=== PATIENT | female | born 1965 | race Caucasian/White ===

== ENCOUNTER 2018-08-19 07:06 | Inpatient (IN) | payer BC ==
[2018-08-11 11:36] VITALS: BMI 27.4
--- NOTE | 2018-08-19 06:38 | P.GSHP ---
History of Present Illness H&P Date: 08/19/18 CHIEF COMPLAINT: Paraesophageal hiatal hernia with gastroesophageal reflux disease. HISTORY OF PRESENT ILLNESS: The patient is a 53-year-old female who presents with paraesophageal hiatal hernia. She has completed an esophageal manometry including upper endoscopy workup. Now she presents for surgical intervention. PAST MEDICAL HISTORY: Please see list. PAST SURGICAL HISTORY: Please see list. MEDICATIONS: Please see list. ALLERGIES: Please see list. SOCIAL HISTORY: No illicit drug use FAMILY HISTORY: No reports of Crohn disease or ulcerative colitis. REVIEW OF ORGAN SYSTEMS: CONSTITUTIONAL: No reports of fevers or chills. GI: Denies any blood in stools or constipation. PHYSICAL EXAM: VITAL SIGNS: Stable GENERAL: Well-developed pleasant and in no acute distress. HEENT: No scleral icterus. Extraocular movements grossly intact. Moist buccal mucosa. NECK: Supple without lymphadenopathy. CHEST: Unlabored respirations. Equal bilateral excursions. CARDIOVASCULAR: Regular rate and rhythm. Distal 2+ pulses. ABDOMEN: Soft, nondistended. No peritoneal signs. MUSCULOSKELETAL: No clubbing, cyanosis, or edema. SKIN: Well-perfused. Good skin turgor. MANOMETRY: Shows no evidence of achalasia or scleroderma. ASSESSMENT: 1. Diaphragmatic paraesophageal hiatal hernia with severe gastroesophageal reflux disease. PLAN: 1. Recommend proceeding with a robotic paraesophageal hiatal hernia with possible mesh. 2. Benefits and risks of surgical intervention was discussed including possibility of open technique. 3. Inpatient hospitalization recommended of 2 nights 4. DVT prophylaxis. 5. Antibiotic prophylaxis. 6. She has also completed a very low caloric high-protein diet to address underlying hepatomegaly. Past Medical History Past Medical History: GERD/Reflux, Hypertension, Osteoarthritis (OA), Renal Disease Additional Past Medical History / Comment(s): BORN WITH 1 KIDNEY., STAGE 3 KIDNEY DISEASE., FATTY LIVER DISEASE, DIVERTICULITIS, HX OF IRREGULAR HEART BEAT., VARICOSE VEINS., BACK PAIN, HX OF FX HIP WITH SURGERY., 29% HEARING LOSS RIGHT EAR., HIATAL HERNIA- STATES SHE IS ON LIQUID DIET PER DR TURPIN INSTRUCTIONS. History of Any Multi-Drug Resistant Organisms: None Reported Past Surgical History: Adenoidectomy, Cholecystectomy, Orthopedic Surgery, Tonsillectomy, Uterine Ablation Additional Past Surgical History / Comment(s): CONE BX X2, FX LEFT HIP (2017) Past Anesthesia/Blood Transfusion Reactions: Postoperative Nausea & Vomiting ( PONV) Past Psychological History: Anxiety, Depression Smoking Status: Never smoker Past Alcohol Use History: Rare Past Drug Use History: None Reported - Past Family History Mother Family Medical History: Cancer Additional Family Medical History / Comment(s): BREAST CANCER Medications and Allergies Home Medications Medication Instructions Recorded Confirmed Type ALPRAZolam [Xanax] 0.25 mg PO BID PRN 08/11/18 08/11/18 History Ergocalciferol [Vitamin D2] 50,000 unit PO Q14D 08/11/18 08/11/18 History L.acidoph,Paracasei, B.lactis 1 each PO DAILY 08/11/18 08/11/18 History [Probiotic] Lisinopril [Zestril] 2.5 mg PO HS 08/11/18 08/11/18 History Multivitamins, Thera [Multivitamin 1 tab PO DAILY 08/11/18 08/11/18 History (formulary)] Omeprazole 40 mg PO DAILY 08/11/18 08/11/18 History Ranitidine HCl 5 ml PO DAILY PRN 08/11/18 08/11/18 History Venlafaxine HCl [Effexor XR] 150 mg PO HS 08/11/18 08/11/18 History Allergies Allergy/AdvReac Type Severity Reaction Status Date / Time grass pollen Allergy Unknown Unknown Verified 08/11/18 11:15 mold Allergy Unknown Unknown Verified 08/11/18 11:15 Yeast Allergy Unknown UPSET Verified 08/11/18 11:15 STOMACH, STUFFY NOSE, MUCUS
[~2018-08-19 07:06] MED LIST: HYDROmorphone 1 MG/ML 1 ML SYRINGE IVP PRN; LIDOCAINE 1% 20 ML VIAL (10MG/ML) FOR IV START INTRADERMA PRN; SCOPOLAMINE 1.5MG/72HR PATCH TRANSDERM ONE; ceFAZolin IN SWFI 2 GM/20 ML SYRINGE IVP ONE
[2018-08-19] MEDS: LACTATED RINGERS 1,000 ML IV SCH ×2 (08:02→09:21)
[2018-08-19] MEDS: DEXAMETHASONE SOD PHOSPHATE 10 MG/ML 1 ML VIAL IV ONE ×2 (08:03→19:51)
[2018-08-19] MEDS: ONDANSETRON 4 MG/2 ML VIAL IVP ONE ×2 (08:04→19:51)
[2018-08-19] MEDS: HEPARIN SODIUM,PORCINE 5,000 UNIT/ML 1 ML VIAL SQ ONE ×2 (08:06→19:51)
[2018-08-19] MEDS ORDERED: ROCURONIUM BROMIDE 10 MG/ML 10 ML VIAL IV ONE (09:21)
[2018-08-19] MEDS ORDERED: NEOSTIGMINE 1 MG/ML 10 ML VIAL ONE (09:21)
[2018-08-19] MEDS ORDERED: SUCCINYLCHOLINE CHLORIDE 100 MG/5 ML SYR IV ONE (09:21)
[2018-08-19] MEDS ORDERED: PHENYLEPHRINE-0.9% NACL SYG 1 MG/10 ML SYRINGE ONE (09:21)
[2018-08-19] MEDS ORDERED: MIDAZOLAM 2 MG/2 ML VIAL ONE (09:21)
[2018-08-19] MEDS ORDERED: PROPOFOL 10 MG/ML 20 ML VIAL IV ONE (09:21)
[2018-08-19] MEDS ORDERED: fentaNYL (PF) 50 MCG/ML 2 ML AMP ONE (09:21)
[2018-08-19] MEDS ORDERED: GLYCOPYRROLATE 0.2 MG/ML 2 ML VIAL ONE (09:21)
[2018-08-19] MEDS ORDERED: LIDOCAINE 1% INJ 10MG/ML (20 ML MDV) ONE (09:21)
[2018-08-19] MEDS ORDERED: BUPIVACAIN-EPI 0.25%-1:200,000 30 ML VIAL SQ ONE (09:52)
[2018-08-19] MEDS ORDERED: LACTATED RINGERS 1,000 ML IV ONE ×2 (11:04→11:10)
[2018-08-19] MEDS ORDERED: HYDROmorphone 1 MG/ML 1 ML SYRINGE IVP PRN (11:39)
--- NOTE | 2018-08-19 11:46 | P.OP ---
Date of Procedure: 08/19/18 Description of Procedure: SURGEON: RADAMES FLYNN MD PREOPERATIVE DIAGNOSES: 1. Gastroesophageal reflux disease. 2. Paraesophageal hiatal hernia, midline. 3. Hypertensive upper esophageal sphincter 4. Dysphagia 5. Renal agenesis 6. Generalized anxiety disorder POSTOPERATIVE DIAGNOSES: 1. Gastroesophageal reflux disease. 2. Paraesophageal hiatal hernia, midline. 3. Hypertensive upper esophageal sphincter 4. Dysphagia 5. Renal agenesis 6. Generalized anxiety disorder OPERATION: 1. Robotic-assisted da Sirena Xi laparoscopic repair of paraesophageal hiatal hernia, 6 x 7 cm, with [place] Biopatch A 8 x 8 cm. 2. Placement of esophageal 56-Israeli bougie ANESTHESIA: General with local anesthetic. ESTIMATED BLOOD LOSS: 5 mL SPECIMENS REMOVED: NONE COMPLICATIONS: None. FINDINGS: 1. Large midline paraesophageal hiatal hernia 6 x 7 cm requiring moderate dissection and mediastinum INDICATIONS: The patient is a 53-year-old male who presents with regurgitation, gastroesophageal reflux disease poorly controlled despite medications, and a symptomatic diaphragmatic hiatal hernia. Preoperative workup including upper endoscopy demonstrated a Hill grade 4 lower esophageal valve. She completed an esophageal manometry. Given the severity of symptoms, she had elected for surgical intervention. Benefits and risks including bleeding, infection, recurrence, dysphagia, injury to the lung, need for further surgery was described at length. Informed consent was obtained. DESCRIPTION: The patient was brought into the operating room and placed in supine position. Preoperatively she had received heparin subcutaneously for DVT prophylaxis. After general induction, the abdomen was prepped and draped in standard sterile fashion. The patient had previously voided prior to coming to the operating room. Ioban draping was placed along the abdomen. A timeout protocol was confirmed with the surgical team, for which the patient's name, procedure to be performed including DVT prophylaxis with bilateral SCDs, and preoperative antibiotics were also confirmed. A robotic da Sirena Xi system was prepped and primed. At 12 cm from the xiphoid to just below the umbilicus, proposed port sites were marked with indelible marker along the left axillary line, left mid-clavicular line with each ports were marked 10 cm from each other. A 5 mm 0 degrees laparoscopic trocar entry was performed along the left upper quadrant. The abdomen was insufflated to 15 mmHg pressure she tolerated well. Diagnostic laparoscopy demonstrated no injury to bowel, viscera, or mesentery. No injury had occurred to the small bowel or viscera. Next, one 8 mm robotic port was placed along the right upper abdomen. An 8-mm port was were placed along the left lateral abdominal wall. The camera 8-mm port was maintained along the epigastrium via the hernia defect. Another 12 mm port was placed along the left upper abdominal wall after exchanging the 5 mm port. Please note that the ports were placed at least 20 cm away from the target anatomy. Care was taken to check that each robotic arm were safely away from collision with the bed or the patient. At the epigastrium, a median sized Reba liver retractor was placed under direct visualization with the Iron Vessel Builder placed under the right shoulder of the patient. All robotic arms were used. The patient was repositioned in reverse Trendelenburg position at 14-degrees after lowering the bed. The robot was docked above the right side of the patient. Using a grasper for arm 3, a grasper for arm 1, including vessel sealer for arm 2, the robotic system was docked and primed as described. Instruments were interchanged by the family medicine physician assistant. I had sat at the console. The gastrohepatic ligament was cleaved using a vessel sealer. Next, the phrenoesophageal ligament was mobilized and the distal esophagus was mobilized circumferentially. The left and right crura was identified. An midline hiatal hernia and sac was found incarcerated into the mediastinum. Circumferentially, the hernia sac was excised and brought into the peritoneal cavity. Moderate dissection into the mediastinum was performed to release the esophagus into the abdominal cavity. Care was taken to avoid any gastrotomy. The measured defect was consistent with 6 cm axial length and 7 cm in width. After dissection, the distal esophagus of 2 cm was brought into the abdominal cavity. Once the hiatus and crura was dissected, 2-0 VLOC suture was placed to reapproximate the diaphragmatic hiatus posteriorly. To buttress the repair, a Kent Biopatch A was prepared along the back table and cut in half of a ríos-hole fashion as to reinforce the repair as an underlay. The mesh was placed along the crural repair and tagged using horizontal mattress sutures using 2-0 VLOC. I went to the head of the bed to perform intraoperative esophagogastroduodenoscopy and placement of a 56Fr bougie. The patient has history of presbyesophagus including mild esophageal dysmotility and a 56-Israeli bougie was placed under direct visualization. The bougie was placed for 1 minute and then removed. An Olympus gastroscope was passed through posterior oropharynx. Erosive esophagitis LA grade A was confirmed. The stomach was entered. Retroflexion of the scope confirmed a Hill grade 2 lower esophageal valve. The stomach had been desufflated. No evidence of leaks were found of the esophagus or stomach. No bleeding was found along the GE junction. The GI tract with desufflated This concluded the endoscopic portion of the case. The robot was undocked from the patient. I re-scrubbed into the case. All instruments and pneumoperitoneum and specimens were evacuated from the abdominal cavity. Incisions were reapproximated using 4-0 Monocryl in an interrupted subcuticular fashion. Liquid glue was applied to the skin. Local anesthetic was infiltrated in all wounds for postop analgesia. Multiple intra-abdominal films were obtained. At the end of the procedure, needle, sponge, and instrument count was verified correct by the neurophysiological technician. The patient had tolerated the procedure well and was taken to the postanesthesia unit in stable condition. Intraoperative films were reviewed with the patient's family who was pleased with the level of care. Console time 59 minutes
[2018-08-19] MEDS: SIMETHICONE 40 MG/0.6 ML DROPS 2,000 MG/30 ML BOTTLE PO SCH ×3 (13:10→22:10)
[2018-08-19] MEDS: HYOSCYAMINE ORAL DROPS 1.875 MG/15 ML BOTTLE PO SCH ×3 (13:10→21:05)
[2018-08-19] MEDS: D5-0.45% NACL WITH KCL 20MEQ/L 1,000 ML IV SCH ×2 (13:11→22:09)
[2018-08-19] MEDS: METOCLOPRAMIDE 5 MG/ML 2 ML VIAL IVP SCH ×2 (13:11→19:39)
--- NOTE | 2018-08-19 15:50 | FL ---
Single contrast esophagram EXAMINATION TYPE: FL esophagus cervic/pharynx DATE OF EXAM: 08/19/2018 3:46 PM COMPARISON: NONE Hiatal hernia repair with mesh, r/o leak/obstruction. 44 sec fluoro, 50 mL isovue used. CLINICAL HISTORY: Status post Simon fundoplication The patient ingested contrast without difficulty or delay. Noted are changes of Simon fundoplicatio n. There is no evidence for leak or obstruction. Small amount of residual contrast within the distal esophagus. IMPRESSION: Post-surgical change of Simon fundoplication without evidence for leak or obstruction.
[2018-08-19 16:16] VITALS: RESP 16
[2018-08-19] MEDS: ONDANSETRON 4 MG/2 ML VIAL IVP SCH (16:44)
[2018-08-19] MEDS: ceFAZolin IN SWFI 2 GM/20 ML SYRINGE IVP SCH (16:44)
[2018-08-19] MEDS: FAMOTIDINE 20 MG/2 ML VIAL IV SCH (21:06)
[2018-08-20] MEDS: HYOSCYAMINE ORAL DROPS 1.875 MG/15 ML BOTTLE PO SCH ×4 (00:35→12:32)
[2018-08-20] MEDS: METOCLOPRAMIDE 5 MG/ML 2 ML VIAL IVP SCH ×3 (00:36→12:31)
[2018-08-20] MEDS: ONDANSETRON 4 MG/2 ML VIAL IVP SCH ×2 (00:36→09:17)
[2018-08-20] MEDS: ceFAZolin IN SWFI 2 GM/20 ML SYRINGE IVP SCH (00:36)
[2018-08-20] MEDS: D5-0.45% NACL WITH KCL 20MEQ/L 1,000 ML IV SCH ×2 (06:13→13:09)
[2018-08-20] MEDS: LACTATED RINGERS 1,000 ML IV SCH (07:59)
[2018-08-20] MEDS ORDERED: ENOXAPARIN 30 MG/0.3 ML SYRINGE SQ SCH (09:00)
[2018-08-20 09:15] VITALS: TEMP 98.1
[2018-08-20 09:16] LABS: HGB 11.7 gm/dL (11.4-16.0); MCH 27.9 pg (25.0-35.0); MCHC 32.4 g/dL (31.0-37.0); Mean Platelet Volume 7.9; Platelet Count 215 k/uL (150-450); RBC 4.19 m/uL (3.80-5.40); RDW 14.2 % (11.5-15.5)
[2018-08-20] MEDS: FAMOTIDINE 20 MG/2 ML VIAL IV SCH (09:17)
[2018-08-20] MEDS: SIMETHICONE 40 MG/0.6 ML DROPS 2,000 MG/30 ML BOTTLE PO SCH ×2 (09:18→12:32)
[2018-08-20 09:25] LABS: Calcium 9.3 mg/dL (8.4-10.2); Magnesium 1.7 mg/dL (1.6-2.3); Phosphorus 2.3 mg/dL (2.5-4.5); Potassium 4.6 mmol/L (3.5-5.1)
[2018-08-20] MEDS ORDERED: SODIUM PHOSPHATE 10 MMOL in SODIUM CHLORIDE 0.9% 250 ML IVPB SCH (10:00)
[2018-08-20] MEDS ORDERED: SODIUM GLYCEROPHOSPHATE 20 MMOL in SODIUM CHLORIDE 0.9% 250 ML IV ONE (10:15)
[2018-08-20] MEDS: MAGNESIUM SULFATE-D5W PMX 1 GM in DEXTROSE/WATER 1 100ML.BAG IVPB SCH ×3 (10:18→12:18)
--- NOTE | 2018-08-20 12:48 | P.DS ---
Providers Date of admission: 08/19/18 07:06 Expected date of discharge: 08/20/18 Attending physician: Karine Vicente Primary care physician: Physician Nonstaff - Discharge Diagnosis(es) (1) Paraesophageal hernia Current Visit: Yes Status: Acute (2) Disorder of upper esophageal sphincter Current Visit: Yes Status: Acute (3) Gastroesophageal reflux disease Current Visit: Yes Status: Acute (4) Renal agenesis, unilateral Current Visit: Yes Status: Acute (5) Renal insufficiency Current Visit: Yes Status: Acute (6) Generalized anxiety disorder Current Visit: Yes Status: Acute (7) Low blood phosphate Current Visit: Yes Status: Acute (8) Low magnesium level Current Visit: Yes Status: Acute Hospital Course: POSTOPERATIVE DIAGNOSES: 1. Gastroesophageal reflux disease. 2. Paraesophageal hiatal hernia, midline. 3. Hypertensive upper esophageal sphincter 4. Dysphagia 5. Renal agenesis 6. Generalized anxiety disorder COURSE: The patient is a 53-year-old male who presents with regurgitation, gastroesophageal reflux disease poorly controlled despite medications, and a symptomatic diaphragmatic hiatal hernia. Preoperative workup including upper endoscopy demonstrated a Hill grade 4 lower esophageal valve. She completed an esophageal manometry. Given the severity of symptoms, she had elected for surgical intervention. Benefits and risks including bleeding, infection, recurrence, dysphagia, injury to the lung, need for further surgery was described at length. Informed consent was obtained. Postprocedure, she was tolerating diet. "I feel great.". Magnesium including phosphate was low. Magnesium infusion were given. Increased phosphate diet supplement was advised. Post hiatal hernia surgery diet was reviewed in detail with her and dispensed. Follow up in the office 2 weeks. PHYSICAL EXAM: VITAL SIGNS: Currently stable. Vital Signs Temp 98.1 F 08/20/18 08:19 Pulse 81 08/20/18 08:19 Resp 16 08/20/18 08:19 BP 104/64 08/20/18 08:19 Pulse Ox 99 08/20/18 08:19 Intake & Output 08/19/18 08/20/18 08/20/18 18:59 06:59 18:59 Intake Total 1550 Output Total 5 600 Balance 1545 -600 Weight 74.843 kg Intake: IV 1300 Intake, IV Titration 250 Amount D5-0.45% NaCl with KCl 250 20Meq/l 1,000 ml @ 125 mls/hr IV .Q8H JEOVANY Rx#: [id number] Output: Urine 600 Estimated Blood Loss 5 Other: Voiding Method Toilet # Voids 1 GENERAL: Well-developed in no acute distress. HEENT: No sclera icterus. Extraocular movements grossly intact. Moist buccal mucosa. Head is atraumatic, normocephalic. Hears conversational speech. No nasal drainage. NECK: Supple without lymphadenopathy. CHEST: Non-labored respirations and equal bilateral excursions. CARDIOVASCULAR: Regular rate with regular rhythm. ABDOMEN: Incisions clean dry and intact. No signs of infection. MUSCULOSKELETAL: No clubbing, cyanosis or edema. NEUROLOGIC: No focal or lateralizing signs. Cranial nerves II through XII grossly intact. PSYCH: Alert and oriented to person, place and time. SKIN: Well perfused. Good skin turgor. LABS: Reviewed Laboratory Last Values WBC 8.0 k/uL (3.8-10.6) 08/20/18 08:55 RBC 4.19 m/uL (3.80-5.40) 08/20/18 08:55 Hgb 11.7 gm/dL (11.4-16.0) 08/20/18 08:55 Hct 36.0 % (34.0-46.0) 08/20/18 08:55 MCV 86.0 fL (80.0-100.0) 08/20/18 08:55 MCH 27.9 pg (25.0-35.0) 08/20/18 08:55 MCHC 32.4 g/dL (31.0-37.0) 08/20/18 08:55 RDW 14.2 % (11.5-15.5) 08/20/18 08:55 Plt Count 215 k/uL (150-450) 08/20/18 08:55 Sodium 140 mmol/L (137-145) 08/20/18 08:55 Potassium 4.6 mmol/L (3.5-5.1) 08/20/18 08:55 Chloride 107 mmol/L (98-107) 08/20/18 08:55 Carbon Dioxide 26 mmol/L (22-30) 08/20/18 08:55 Anion Gap 7 mmol/L 08/20/18 08:55 BUN 13 mg/dL (7-17) 08/20/18 08:55 Creatinine 1.00 mg/dL (0.52-1.04) 08/20/18 08:55 Est GFR (CKD-EPI)AfAm 75 (>60 ml/min/1.73 sqM) 08/20/18 08:55 Est GFR (CKD-EPI)NonAf 65 (>60 ml/min/1.73 sqM) 08/20/18 08:55 Glucose 93 mg/dL (74-99) 08/20/18 08:55 Calcium 9.3 mg/dL (8.4-10.2) 08/20/18 08:55 Phosphorus 2.3 mg/dL (2.5-4.5) L 08/20/18 08:55 Magnesium 1.7 mg/dL (1.6-2.3) 08/20/18 08:55 ASSESSMENT: 1. Hiatal hernia PLAN: 1. Discharged from today Pertinent Studies: Esophagram demonstrated a resolved hiatal hernia. No evidence of leak or obstruction Procedures: OPERATION: 1. Robotic-assisted da Sirena Xi laparoscopic repair of paraesophageal hiatal hernia, 6 x 7 cm, with [place] Biopatch A 8 x 8 cm. 2. Placement of esophageal 56-Korean bougie ANESTHESIA: General with local anesthetic. ESTIMATED BLOOD LOSS: 5 mL SPECIMENS REMOVED: NONE COMPLICATIONS: None. FINDINGS: 1. Large midline paraesophageal hiatal hernia 6 x 7 cm requiring moderate dissection and mediastinum Patient Condition at Discharge: Stable Plan - Discharge Summary Discharge Rx Participant: Yes New Discharge Prescriptions: New Hyoscyamine Oral Drops [Levsin Drops] 0.125 mg PO Q4HR ml Simethicone 40 mg/0.6 ml Drops [Mylicon Drops] 40 mg PO QID ml Continue Venlafaxine HCl [Effexor XR] 150 mg PO HS Lisinopril [Zestril] 2.5 mg PO HS ALPRAZolam [Xanax] 0.25 mg PO BID PRN PRN Reason: Anxiety Discontinued Multivitamins, Thera [Multivitamin (formulary)] 1 tab PO DAILY Ergocalciferol [Vitamin D2] 50,000 unit PO Q14D Ranitidine HCl 5 ml PO DAILY PRN PRN Reason: Heartburn Omeprazole 40 mg PO DAILY L.acidoph,Paracasei, B.lactis [Probiotic] 1 cap PO DAILY Discharge Medication List ALPRAZolam [Xanax] 0.25 mg PO BID PRN 08/11/18 [History] Lisinopril [Zestril] 2.5 mg PO HS 08/11/18 [History] Venlafaxine HCl [Effexor XR] 150 mg PO HS 08/11/18 [History] Hyoscyamine Oral Drops [Levsin Drops] 0.125 mg PO Q4HR ml 08/20/18 [Rx] Simethicone 40 mg/0.6 ml Drops [Mylicon Drops] 40 mg PO QID ml 08/20/18 [Rx] Follow up Appointment(s)/Referral(s): Karine Vicente MD [STAFF PHYSICIAN] - 08/30/18 Patient Instructions/Handouts: Laparoscopic Hiatal Hernia Repair (DC) Activity/Diet/Wound Care/Special Instructions: No lifting for 4 pounds in 4 weeks. May shower. No bath tub soaks. No straws or carbonated beverages. Liquid diet only. Please drink plenty of soy milk or milk to help with low phosphate. Take Tylenol for pain Discharge Disposition: HOME SELF-CARE
[2018-08-20 13:33] VITALS: BP 99/63; PULSE 79
== END 2018-08-20 14:34 | disposition home or self-care (01) | DRG 327 ==
LOC: 2ORMAIN 07:06 → 6PED 12:00
PROVIDERS: ADMIT Surgery Plastic and Reconstructive Surgery; ATTEND Surgery Plastic and Reconstructive Surgery
PROC: 8E0W4CZ Robotic Assisted Procedure of Trunk Region, Percutaneous Endoscopic Approach (ICD-10-PCS; 2018-08-19)
PROC: 0BUT4JZ Supplement Diaphragm with Synthetic Substitute, Percutaneous Endoscopic Approach (ICD-10-PCS; principal; 2018-08-19 09:40)
DX: K44.9 Diaphragmatic hernia without obstruction or gangrene (principal); Q60.0 Renal agenesis, unilateral; F32.9 Major depressive disorder, single episode, unspecified; F41.1 Generalized anxiety disorder; H91.91 Unspecified hearing loss, right ear; I10 Essential (primary) hypertension; K21.0 Gastro-esophageal reflux disease with esophagitis; K76.0 Fatty (change of) liver, not elsewhere classified; N28.9 Disorder of kidney and ureter, unspecified; K57.90 Diverticulosis of intestine, part unspecified, without perforation or abscess without bleeding; M19.90 Unspecified osteoarthritis, unspecified site; I83.90 Asymptomatic varicose veins of unspecified lower extremity; R13.10 Dysphagia, unspecified; Z90.49 Acquired absence of other specified parts of digestive tract; Z79.899 Other long term (current) drug therapy; Z91.048 Other nonmedicinal substance allergy status; Z80.3 Family history of malignant neoplasm of breast
CPT/HCPCS: 74210; 80048; 81025; 83735; 84100; 85027